=== PATIENT | female | born 2000 | race Caucasian/White ===

== ENCOUNTER 2018-05-10 11:19 | Emergency (ER) | payer OTHER ==
[~2018-05-10] VITALS: Ht 172.7 cm; Wt 99.8 kg
[~2018-05-10 11:19] MED LIST: AZIT250 PO; Percocet 5-3251 EACH PO; RXCLIN PO
== END 2018-05-10 13:21 | disposition home or self-care (01) ==
LOC: ER 11:19
DX: S51.811A Laceration without foreign body of right forearm, initial encounter (principal); Z88.0 Allergy status to penicillin; Z88.1 Allergy status to other antibiotic agents; Z88.8 Allergy status to other drugs, medicaments and biological substances; Z87.891 Personal history of nicotine dependence; W25.XXXA Contact with sharp glass, initial encounter
CPT/HCPCS: 99283

== ENCOUNTER 2018-10-02 12:40 | Emergency (ER) | payer OTHER ==
[~2018-10-02] VITALS: Ht 172.7 cm; Wt 99.8 kg
[2018-10-02 13:21] LABS: BASOPHILS ABSOLUTE AUTO 0.02 K/mm3 (0.00-0.23); BASOPHILS PERCENT AUTO 0 % (0-2); EOSINOPHILS ABSOLUTE AUTO 0.24 K/mm3 (0.00-0.68); EOSINOPHILS PERCENT AUTO 3 % (0-6); Hematocrit 42.7 % (33.0-51.0); Hemoglobin 13.8 g/dL (11.5-16.0); IMMATURE GRAN ABSOLUTE AUTO 0.01 K/mm3 (0.00-0.10); IMMATURE GRAN PERCENT AUTO 0 % (0-1); LYMPHOCYTES ABSOLUTE AUTO 2.74 K/mm3 (0.84-5.20); LYMPHOCYTES PERCENT AUTO 35 % (21-46); MONOCYTES ABSOLUTE AUTO 0.57 K/mm3 (0.16-1.47); MONOCYTES PERCENT AUTO 7 % (4-13); Mean Corpuscular HGB 28.6 pg (26.0-34.0); Mean Corpuscular HGB Conc 32.3 g/dL (31.5-36.5); Mean Corpuscular Volume 89 fL (80-100); NEUTROPHILS ABSOLUTE AUTO 4.25 K/mm3 (1.96-9.15); NEUTROPHILS PERCENT AUTO 54 % (41-73); RDW Coefficient Variation 12.9 % (11.7-14.2); RDW Standard Deviation 42.5 fL (35.1-46.3); Red Blood Cell Count 4.82 M/mm3 (3.80-5.20); White Blood Cell Count 7.83 K/mm3 (4.00-11.30)
[2018-10-02 13:39] LABS: Magnesium, Blood 2.1 mg/dL (1.6-2.4)
[2018-10-02 13:41] LABS: Alanine Aminotransfer (ALT/SGP 39 U/L (12-78); Albumin, Blood 3.6 g/dL (3.4-5.0); Albumin/Globulin Ratio 0.9 (0.8-1.8); Alk Phos 98 U/L (45-116); Anion Gap 5 mmol/L (6-16); Aspartate Aminotrans (AST/SGOT 31 U/L (12-37); Bilirubin, Total 0.6 mg/dL (0.1-1.0); Blood Urea Nitrogen 9 mg/dL (8-21); Bun/Creatinine Ratio 15.6 (12.0-20.0); CO2, Blood 26 mmol/L (21-32); Calcium, Blood 8.6 mg/dL (8.5-10.1); Chloride, Blood 109 mmol/L (98-108); Creatinine, Blood 0.58 mg/dL (0.40-1.00); Globulin, Blood 4.1 g/dL (2.2-4.0); Glomerular Filtration Rate >60 (60-); Glucose, Blood 87 mg/dL (70-99); Potassium, Blood 4.7 mmol/L (3.5-5.5); Sodium, Blood 140 mmol/L (136-145); Total Protein, Blood 7.7 g/dL (6.4-8.2)
[2018-10-02 13:45] LABS: Mean Platelet Volume 10.5 fL (9.1-12.4); Platelet Count 187 K/mm3 (150-400)
[2018-10-02 15:34] LABS: Source, Urine Clean Catch
[2018-10-02 15:37] LABS: Bilirubin, Urine Neg (Neg); Blood, Urine 5+ (Neg); Glucose Qualitative, Urine Neg (Neg); Ketones, Urine Neg (Neg); Leukocyte Esterase, Urine Neg (Neg); Nitrite, Urine Neg (Neg); Protein, Urine Neg (Neg); Urobilinogen, Urine NORM (Normal)
[2018-10-02 15:53] LABS: Appearance, Urine Clear (Clear); Color, Urine Yellow (P-Yellow)
[2018-10-02 15:54] LABS: Red Blood Cells, Urine 0-2 /hpf (0-2); Squamous Epithelial Cells Mod /hpf (Few); White Blood Cells, Urine Rare /hpf (0-5)
[2018-10-02 15:55] LABS: Bacteria Rare /hpf
== END 2018-10-02 18:42 | disposition home or self-care (01) ==
LOC: ER 12:40
PROVIDERS: Physician Assistant
DX: R10.33 Periumbilical pain (principal); Z88.0 Allergy status to penicillin; Z88.1 Allergy status to other antibiotic agents; Z88.8 Allergy status to other drugs, medicaments and biological substances; R11.2 Nausea with vomiting, unspecified; F17.290 Nicotine dependence, other tobacco product, uncomplicated
CPT/HCPCS: 36415; 76705; 76857; 80053; 81001; 81025; 83690; 83735; 85025; 96374; 96375; 99284-25; J1885; J2405

== ENCOUNTER 2019-01-18 16:07 | Emergency (ER) | payer OTHER ==
[~2019-01-18] VITALS: Ht 170.2 cm; Wt 95.2 kg
[2019-01-18] MEDS ORDERED: Flonase 0.05% N16 GM (17:33)
[2019-01-18] MEDS ORDERED: ALBU90OI61 INH (17:33)
[2019-01-18] MEDS ORDERED: Prednisone20 MG PO (17:33)
[2019-01-18] MEDS ORDERED: Cheratussin AC118 ML PO (17:33)
== END 2019-01-18 17:39 | disposition home or self-care (01) ==
LOC: ER 16:07
DX: R05 Cough (principal); Z88.0 Allergy status to penicillin; Z88.1 Allergy status to other antibiotic agents; Z88.8 Allergy status to other drugs, medicaments and biological substances; Z87.891 Personal history of nicotine dependence
CPT/HCPCS: 71046; 87081; 87430; 99283-25; J1100

== ENCOUNTER 2019-06-01 14:02 | Emergency (ER) | payer OTHER ==
[~2019-06-01] VITALS: Ht 170.2 cm; Wt 96.2 kg
[~2019-06-01 14:02] MED LIST changes: +ALBU90OI61 INH; +Cheratussin AC118 ML PO; +Flonase 0.05% N16 GM; +Prednisone20 MG PO
[2019-06-01 14:59] LABS: BASOPHILS ABSOLUTE AUTO 0.02 K/mm3 (0.00-0.23); BASOPHILS PERCENT AUTO 0 % (0-2); EOSINOPHILS ABSOLUTE AUTO 0.13 K/mm3 (0.00-0.68); EOSINOPHILS PERCENT AUTO 1 % (0-6); Hemoglobin 13.4 g/dL (11.5-16.0); IMMATURE GRAN ABSOLUTE AUTO 0.03 K/mm3 (0.00-0.10); IMMATURE GRAN PERCENT AUTO 0 % (0-1); LYMPHOCYTES ABSOLUTE AUTO 2.56 K/mm3 (0.84-5.20); LYMPHOCYTES PERCENT AUTO 26 % (21-46); MONOCYTES ABSOLUTE AUTO 0.78 K/mm3 (0.16-1.47); MONOCYTES PERCENT AUTO 8 % (4-13); Mean Corpuscular HGB 28.9 pg (26.0-34.0); Mean Corpuscular HGB Conc 32.7 g/dL (31.5-36.5); Mean Corpuscular Volume 89 fL (80-100); Mean Platelet Volume 10.7 fL (9.1-12.4); NEUTROPHILS ABSOLUTE AUTO 6.46 K/mm3 (1.96-9.15); NEUTROPHILS PERCENT AUTO 65 % (41-73); Platelet Count 234 K/mm3 (150-400); RDW Standard Deviation 41.9 fL (35.1-46.3); Red Blood Cell Count 4.63 M/mm3 (3.80-5.20); White Blood Cell Count 9.98 K/mm3 (4.00-11.30)
[2019-06-01 15:28] LABS: Alanine Aminotransfer (ALT/SGP 19 U/L (12-78); Albumin, Blood 3.5 g/dL (3.4-5.0); Albumin/Globulin Ratio 0.9 (0.8-1.8); Alk Phos 74 U/L (50-136); Anion Gap 5 mmol/L (6-16); Aspartate Aminotrans (AST/SGOT 12 U/L (12-37); Bilirubin, Total 0.4 mg/dL (0.1-1.0); Blood Urea Nitrogen 6 mg/dL (8-24); Bun/Creatinine Ratio 10.2 (12.0-20.0); CO2, Blood 27 mmol/L (21-32); Calcium, Blood 9.1 mg/dL (8.5-10.1); Chloride, Blood 107 mmol/L (98-108); Creatinine, Blood 0.59 mg/dL (0.40-1.00); Globulin, Blood 3.7 g/dL (2.2-4.0); Glomerular Filtration Rate >60 (60-); Glucose, Blood 90 mg/dL (70-99); Potassium, Blood 4.2 mmol/L (3.5-5.5); Sodium, Blood 139 mmol/L (136-145); Total Protein, Blood 7.2 g/dL (6.4-8.2)
[2019-06-01 15:40] LABS: Beta HCG, Quantitative, Serum 79896 mIU/mL (0-3)
[2019-06-01 16:09] LABS: Source, Urine Clean Catch
[2019-06-01 16:12] LABS: Bilirubin, Urine Neg (Neg); Blood, Urine 4+ (Neg); Glucose Qualitative, Urine Neg (Neg); Ketones, Urine Neg (Neg); Leukocyte Esterase, Urine Neg (Neg); Nitrite, Urine Neg (Neg); Protein, Urine Neg (Neg); Urobilinogen, Urine NORM (Normal); pH, Urine 6.5 (5.0-8.0)
[2019-06-01 16:17] LABS: Appearance, Urine Clear (Clear); Color, Urine Yellow (P-Yellow)
[2019-06-01 16:18] LABS: Bacteria Mod /hpf; Squamous Epithelial Cells Few /hpf (Few); White Blood Cells, Urine 0-2 /hpf (0-5)
== END 2019-06-01 17:03 | disposition home or self-care (01) ==
LOC: ER 14:02
PROVIDERS: Physician Assistant
DX: O20.0 Threatened abortion (principal); Z87.891 Personal history of nicotine dependence; Z88.0 Allergy status to penicillin; Z88.1 Allergy status to other antibiotic agents; Z88.8 Allergy status to other drugs, medicaments and biological substances; Z79.899 Other long term (current) drug therapy; Z79.52 Long term (current) use of systemic steroids; Z3A.01 Less than 8 weeks gestation of pregnancy
CPT/HCPCS: 36415; 76801; 76817; 80053; 81001; 84702; 85025; 86900; 86901; 87086; 99284-25

== ENCOUNTER 2020-01-24 16:34 | Inpatient (IN) | payer OTHER ==
[~2020-01-24] VITALS: Ht 172.7 cm; Wt 128.0 kg
[2020-01-24 17:50] LABS: BASOPHILS ABSOLUTE AUTO 0.03 K/mm3 (0.00-0.23); BASOPHILS PERCENT AUTO 0 % (0-2); EOSINOPHILS ABSOLUTE AUTO 0.07 K/mm3 (0.00-0.68); EOSINOPHILS PERCENT AUTO 1 % (0-6); Hematocrit 41.7 % (33.0-51.0); Hemoglobin 14.1 g/dL (11.5-16.0); IMMATURE GRAN ABSOLUTE AUTO 0.13 K/mm3 (0.00-0.10); IMMATURE GRAN PERCENT AUTO 1 % (0-1); LYMPHOCYTES ABSOLUTE AUTO 2.15 K/mm3 (0.84-5.20); LYMPHOCYTES PERCENT AUTO 21 % (21-46); MONOCYTES ABSOLUTE AUTO 0.77 K/mm3 (0.16-1.47); MONOCYTES PERCENT AUTO 8 % (4-13); Mean Corpuscular HGB 31.5 pg (26.0-34.0); Mean Corpuscular HGB Conc 33.8 g/dL (31.5-36.5); Mean Corpuscular Volume 93 fL (80-100); Mean Platelet Volume 10.5 fL (9.1-12.4); NEUTROPHILS ABSOLUTE AUTO 6.98 K/mm3 (1.96-9.15); NEUTROPHILS PERCENT AUTO 69 % (41-73); Platelet Count 188 K/mm3 (150-400); RDW Coefficient Variation 12.8 % (11.7-14.2); Red Blood Cell Count 4.47 M/mm3 (3.80-5.20); White Blood Cell Count 10.13 K/mm3 (4.00-11.30)
--- NOTE | 2020-01-25 13:35 | NUR ---
RN ROUNDED TO HELP W/ . PT STATES NB JUST FED FOR 15 MINUTES, WELL, SUCKING ENTIRE TIME. PT DECLINED LETTING RN HELP LINE NB UP TO SHOW HER HOW TO CORRECTLY LATCH NB, STATES MY "FAMILY FROM [place] IS HERE WAITING AT THE WINDOW". RN WILL ROUND AGAIN IN THE MORNING. FLOOR RN UPDATED.
[2020-01-26 05:53] LABS: BASOPHILS ABSOLUTE AUTO 0.05 K/mm3 (0.00-0.23); BASOPHILS PERCENT AUTO 0 % (0-2); EOSINOPHILS ABSOLUTE AUTO 0.13 K/mm3 (0.00-0.68); EOSINOPHILS PERCENT AUTO 1 % (0-6); Hematocrit 34.1 % (33.0-51.0); Hemoglobin 11.3 g/dL (11.5-16.0); IMMATURE GRAN ABSOLUTE AUTO 0.16 K/mm3 (0.00-0.10); IMMATURE GRAN PERCENT AUTO 1 % (0-1); LYMPHOCYTES ABSOLUTE AUTO 3.58 K/mm3 (0.84-5.20); LYMPHOCYTES PERCENT AUTO 27 % (21-46); MONOCYTES ABSOLUTE AUTO 0.98 K/mm3 (0.16-1.47); MONOCYTES PERCENT AUTO 8 % (4-13); Mean Corpuscular HGB 31.4 pg (26.0-34.0); Mean Corpuscular HGB Conc 33.1 g/dL (31.5-36.5); Mean Corpuscular Volume 95 fL (80-100); Mean Platelet Volume 10.6 fL (9.1-12.4); NEUTROPHILS ABSOLUTE AUTO 8.15 K/mm3 (1.96-9.15); NEUTROPHILS PERCENT AUTO 63 % (41-73); Platelet Count 165 K/mm3 (150-400); RDW Coefficient Variation 13.2 % (11.7-14.2); RDW Standard Deviation 45.1 fL (35.1-46.3); White Blood Cell Count 13.05 K/mm3 (4.00-11.30)
--- NOTE | 2020-01-26 10:55 | NUR ---
RN ROUNDED TO HELP W/ . PT HAS NB AT THE BREAST AND STATES NB "JUST FED FOR 15 MINUTES". SINCE NB WAS AT BREAST, RN INSTRUCT/DEMO CORRECT POSITIONING AND NIPPLE SHAPE AFTER FEEDS. NB LATCHED WELL, SUCKED FOR A MINUTES AND THEN STOPPED. PT VERBALIZED UNDERSTANDING OF CORRECT LATCHING, DENIES ANY FURTHER QUESTIONS OR CONCERNS.
--- NOTE | 2020-01-27 02:43 | NUR ---
PT REPORTS BILATERAL ABDOMINAL PAIN ALONG HER SIDES, MOTRIN GIVEN WITH NO RELIEF. K-PAD AND HEATED BLANKET GIVEN, WITH NO RELIEF. PT REQUESTED AN ABDOMINAL BINDER WHICH HELPED SOME, PT REPORTS PAIN 7/10 DECLINES PERCOCET AND TYLENOL AT THIS TIME. BLEEDING AND FUNDAL CHECK WNL. RN ENCOURAGED PT TO GET UP AND WALK TO SEE IF THAT WOULD HELP. PT UP WALKING IN HOLT AT THIS TIME. PT APPEARS MORE RELAXED WHILE WALKING AND IS NO LONGER HOLDING HER SIDES OR ROCKING/BOUNCING BECAUSE OF THE PAIN.
== END 2020-01-27 09:45 | disposition home or self-care (01) | DRG 807 ==
LOC: BC 16:34 → OBS 16:34 → BC 16:42
PROVIDERS: Registered Nurse Community Health; ADMIT Obstetrics & Gynecology
PROC: 10E0XZZ Delivery of Products of Conception, External Approach (ICD-10-PCS; principal; 2020-01-25)
PROC: 0HQ9XZZ Repair Perineum Skin, External Approach (ICD-10-PCS; 2020-01-25)
PROC: 00HU33Z Insertion of Infusion Device into Spinal Canal, Percutaneous Approach (ICD-10-PCS; 2020-01-25)
PROC: 3E0R3BZ Introduction of Anesthetic Agent into Spinal Canal, Percutaneous Approach (ICD-10-PCS; 2020-01-25)
DX: O70.0 First degree perineal laceration during delivery (principal); Z37.0 Single live birth; Z3A.40 40 weeks gestation of pregnancy; Z88.0 Allergy status to penicillin
CPT/HCPCS: 36415; 51702; 85025; 86850; 86900; 86901; J1885; J2590; J3010; J7120

== ENCOUNTER → 2024-09-21 | Outpatient (CLI) | payer OTHER | END | disposition home or self-care (01) | LOC: LAB SHORT 08:19 → LAB 08:19 | DX: D49.2 Neoplasm of unspecified behavior of bone, soft tissue, and skin (principal); D18.00 Hemangioma unspecified site; L98.0 Pyogenic granuloma; C49.9 Malignant neoplasm of connective and soft tissue, unspecified | CPT/HCPCS: 88305 ==

== ENCOUNTER 2024-11-01 00:04 | Observation (INO) | payer OTHER ==
[~2024-11-01] VITALS: Ht 172.7 cm; Wt 133.2 kg
[2024-11-01 00:19] VITALS: BP 124/64
[2024-11-01 02:50] VITALS: BP 121/59
[2024-11-01] MEDS ORDERED: METF500 PO (03:38)
[2024-11-01] MEDS ORDERED: PRENATAL TABLE1 EAC2 PO (03:38)
--- NOTE | 2024-11-01 08:58 | NUR ---
0850- [facility] [place] Elijah BRADSHAW in to see pt, dcd to home, appt with Dr. Alan Fraga
== END 2024-11-01 08:58 | disposition home or self-care (01) ==
LOC: OBS 00:04 → BC 00:08 → OBS 03:38 → BC 03:40
PROVIDERS: ADMIT Advanced Practice Midwife
DX: O36.8330 Maternal care for abnormalities of the fetal heart rate or rhythm, third trimester, not applicable or unspecified (principal); O24.415 Gestational diabetes mellitus in pregnancy, controlled by oral hypoglycemic drugs; Z3A.39 39 weeks gestation of pregnancy; Z88.0 Allergy status to penicillin; Z88.1 Allergy status to other antibiotic agents; Z79.84 Long term (current) use of oral hypoglycemic drugs; Z79.899 Other long term (current) drug therapy
CPT/HCPCS: 59025; 81003; 82947; 87210; 99214

== ENCOUNTER 2024-11-07 18:17 | Inpatient (IN) | payer OTHER ==
[2024-11-07] VITALS (14 sets, daily range): BP systolic 114–145; BP diastolic 58–82
[~2024-11-07] VITALS: Ht 172.7 cm; Wt 133.2 kg
[~2024-11-07 18:17] MED LIST changes: +METF500 PO; +PRENATAL TABLE1 EAC2 PO
[2024-11-07] MEDS ORDERED: Acetaminophen 500 MG Tab PO PRN (18:45)
[2024-11-07] MEDS ORDERED: Carboprost Tromethamine 250 MCG/ML 1ML Amp IM PRN (18:45)
[2024-11-07] MEDS ORDERED: Ondansetron HCl 2 MG / ML 2ML Vial IV PRN (18:45)
[2024-11-07] MEDS ORDERED: Oxytocin 10 Unit / ML Vial IM PRN (18:45)
[2024-11-07] MEDS ORDERED: Misoprostol 200 MCG Tab BC PRN (18:45)
[2024-11-07] MEDS ORDERED: OXYTOCIN/RINGER'S LACTATE 500 ML IV PRN (18:45)
[2024-11-07] MEDS ORDERED: Tranexamic Acid 100 ML IV SCH (18:45)
[2024-11-07] MEDS ORDERED: Lactated Ringer's 1,000 ML IV PRN (18:45)
[2024-11-07] MEDS ORDERED: Calcium Carbonate 500 MG Tab Chew PO SCH (18:45)
[2024-11-07] MEDS ORDERED: Misoprostol 200 MCG Tab PR PRN (18:45)
[2024-11-07] MEDS ORDERED: Methylergonovine Maleate 0.2MG / ML 1ML Amp IM PRN (18:45)
[2024-11-07] MEDS ORDERED: Lactated Ringer's 1,000 ML IV SCH ×2 (19:00)
[2024-11-07] MEDS ORDERED: FentaNYL 2mcg/ml-Bup 0.1% Epd 250 ML EPI PRN (19:00)
[2024-11-07] MEDS ORDERED: ePHEDrine Sulfate 50 MG/ML 1ML Injection XX PRN (19:00)
[2024-11-07 19:41] LABS: BASOPHILS ABSOLUTE AUTO 0.03 K/mm3 (0.00-0.23); BASOPHILS PERCENT AUTO 0 % (0-2); EOSINOPHILS ABSOLUTE AUTO 0.12 K/mm3 (0.00-0.68); EOSINOPHILS PERCENT AUTO 1 % (0-6); Hematocrit 42.9 % (33.0-51.0); Hemoglobin 14.6 g/dL (11.5-16.0); IMMATURE GRAN ABSOLUTE AUTO 0.06 K/mm3 (0.00-0.10); IMMATURE GRAN PERCENT AUTO 1 % (0-1); LYMPHOCYTES PERCENT AUTO 25 % (21-46); MONOCYTES ABSOLUTE AUTO 0.66 K/mm3 (0.16-1.47); MONOCYTES PERCENT AUTO 7 % (4-13); Mean Corpuscular HGB 30.3 pg (26.0-34.0); Mean Corpuscular Volume 89 fL (80-100); Mean Platelet Volume 10.7 fL (9.1-12.4); NEUTROPHILS ABSOLUTE AUTO 5.95 K/mm3 (1.96-9.15); NEUTROPHILS PERCENT AUTO 65 % (41-73); Platelet Count 211 K/mm3 (150-400); RDW Coefficient Variation 14.1 % (11.7-14.2); RDW Standard Deviation 45.4 fL (35.1-46.3); Red Blood Cell Count 4.82 M/mm3 (3.80-5.20); White Blood Cell Count 9.12 K/mm3 (4.00-11.30)
[2024-11-07] MEDS ORDERED: NS 0 ML IV ONE (21:41)
[2024-11-07] MEDS ORDERED: NS 100 ML IV SCH (21:55)
[2024-11-07] MEDS ORDERED: Calcium Carbonate 500 MG Tab Chew PO PRN (22:00)
[2024-11-08] VITALS (15 sets, daily range): BP systolic 109–154; BP diastolic 54–87
[2024-11-08] MEDS ORDERED: Witch Hazel/Glycerin PADS TOP PRN (01:50)
[2024-11-08] MEDS ORDERED: Ketorolac Tromethamine 30mg Vial IV PRN (01:50)
[2024-11-08] MEDS ORDERED: FLU VACC TS2024-25(6MOS UP)/PF 45 MCG/0.5 ML SYRINGE IM ONE (01:50)
[2024-11-08] MEDS ORDERED: Benzocaine Topical Anesthetic Spray 60GM TOP PRN (01:50)
[2024-11-08] MEDS ORDERED: Docusate Sodium 100 MG Cap PO PRN (01:50)
[2024-11-08] MEDS ORDERED: Misoprostol 200 MCG Tab BC PRN (01:55)
[2024-11-08] MEDS ORDERED: Lanolin Cream TOP PRN (01:55)
[2024-11-08] MEDS ORDERED: Methylergonovine Maleate 0.2MG / ML 1ML Amp IM PRN (01:55)
[2024-11-08] MEDS ORDERED: OxyCODONE 5 mg/Acetamin 325 mg TABLET PO PRN (01:55)
[2024-11-08] MEDS ORDERED: Lactated Ringer's 1,000 ML IV SCH (01:55)
[2024-11-08 06:11] LABS: BASOPHILS ABSOLUTE AUTO 0.02 K/mm3 (0.00-0.23); BASOPHILS PERCENT AUTO 0 % (0-2); EOSINOPHILS ABSOLUTE AUTO 0.01 K/mm3 (0.00-0.68); EOSINOPHILS PERCENT AUTO 0 % (0-6); Hematocrit 38.1 % (33.0-51.0); Hemoglobin 13.3 g/dL (11.5-16.0); IMMATURE GRAN ABSOLUTE AUTO 0.07 K/mm3 (0.00-0.10); IMMATURE GRAN PERCENT AUTO 1 % (0-1); LYMPHOCYTES ABSOLUTE AUTO 1.42 K/mm3 (0.84-5.20); LYMPHOCYTES PERCENT AUTO 9 % (21-46); MONOCYTES ABSOLUTE AUTO 1.15 K/mm3 (0.16-1.47); MONOCYTES PERCENT AUTO 8 % (4-13); Mean Corpuscular HGB Conc 34.9 g/dL (31.5-36.5); Mean Corpuscular Volume 89 fL (80-100); Mean Platelet Volume 10.9 fL (9.1-12.4); NEUTROPHILS ABSOLUTE AUTO 12.66 K/mm3 (1.96-9.15); NEUTROPHILS PERCENT AUTO 83 % (41-73); Platelet Count 185 K/mm3 (150-400); RDW Coefficient Variation 14.2 % (11.7-14.2); RDW Standard Deviation 45.9 fL (35.1-46.3); Red Blood Cell Count 4.29 M/mm3 (3.80-5.20); White Blood Cell Count 15.33 K/mm3 (4.00-11.30)
[2024-11-08] MEDS ORDERED: Insulin Regular 100 UNIT/ML 10ML Vial SC SCH ×2 (07:30)
[2024-11-08] MEDS ORDERED: MetFORMIN HCl 500 mg PO SCH (09:00)
[2024-11-08] MEDS ORDERED: Prenatal Vit/FE Fumarate/FA 1 Tab PO SCH ×2 (09:00)
--- NOTE | 2024-11-08 18:50 | NUR ---
STABLE PATIENT THIS SHIFT REPORT TO NOCS
[2024-11-09 05:03] VITALS: BP 109/61
[2024-11-09 08:28] VITALS: BP 124/63
[2024-11-09] MEDS ORDERED: IBUP800 PO (09:09)
[2024-11-09] MEDS ORDERED: DOCU100 PO (09:09)
--- NOTE | 2024-11-09 11:48 | NUR ---
discharged home. walked to car and observed careseat put into base installed in car.
== END 2024-11-09 11:15 | disposition home or self-care (01) | DRG 807 ==
LOC: OBS 18:17 → BC 18:25
PROVIDERS: Obstetrics & Gynecology; ADMIT Family Medicine
PROC: 10E0XZZ Delivery of Products of Conception, External Approach (ICD-10-PCS; principal; 2024-11-08)
DX: O42.02 Full-term premature rupture of membranes, onset of labor within 24 hours of rupture (principal); Z37.0 Single live birth; O48.0 Post-term pregnancy; Z3A.40 40 weeks gestation of pregnancy; O24.425 Gestational diabetes mellitus in childbirth, controlled by oral hypoglycemic drugs; Z88.5 Allergy status to narcotic agent; Z88.0 Allergy status to penicillin; Z88.1 Allergy status to other antibiotic agents; O69.81X0 Labor and delivery complicated by cord around neck, without compression, not applicable or unspecified
CPT/HCPCS: 36415; 36416; 51702; 59025; 82947; 85025; 86850; 86900; 86901; 99214; A9270; J2405; J2590; J7120